=== PATIENT | male | born 1960 | race African-American/Black ===

== ENCOUNTER 2018-12-26 02:21 | Inpatient (IN) | payer MEDICAID ==
[~2018-12-26] VITALS: Ht 162.6 cm; Wt 71.8 kg
[2018-12-26] MEDS ORDERED: BLOOD SUGAR DIAGNOSTIC 1 EACH STRIP IN ONE (03:00)
[2018-12-26] MEDS ORDERED: ACETAMINOPHEN 325 MG TABLET PO PRN (03:00)
[2018-12-26] MEDS ORDERED: TEMAZEPAM 7.5 MG CAPSULE PO PRN (03:00)
[2018-12-26] MEDS ORDERED: MAGNESIUM HYDROXIDE 30 ML UDC PO PRN (03:00)
[2018-12-26] MEDS ORDERED: MAG HYDROX/AL HYDROX/SIMETH 30 ML UDC PO PRN (03:00)
[2018-12-26] MEDS ORDERED: LORAZEPAM 0.5 MG TABLET PO PRN (03:00)
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
--- NOTE | 2018-12-26 04:05 | NUR ---
MS/RN NOTES PATIENT AAOX3. PATIENT IS TAKING ONLY 2 MEDICATIONS AT HOME. FAMILY NEEDS TO BE NOTIFIED IN THE MORNING. ALL SAFETY MEASURES APPLIED. BED PUT ON LOWEST POSITION. BED ALARM ON SIDERAILS UPX2 ALL NEEDS ATTENDED.
[2018-12-26] MEDS ORDERED: ZIPR20CA2 PO (07:37)
[2018-12-26] MEDS ORDERED: SERT25TA5 PO (07:37)
[2018-12-26 08:00] VITALS: BP 109/63
--- NOTE | 2018-12-26 09:00 | NUR ---
received pt. non-intrusive.isolative.cooperative.no acute distress.
[2018-12-26 16:00] VITALS: BP 139/74
--- NOTE | 2018-12-26 18:25 | NUR ---
REFUSED MRSA SMEAR.
--- NOTE | 2018-12-26 20:00 | NUR ---
GPS RN NOTE RECEIVED PATIENT IN BED AWAKE. A/O X3. TOLERATING ROOM AIR. RESPIRATIONS ARE EVEN AND UNLABORED. NO S/S SOB. DENIES PAIN AT THIS TIME. NO APPARENT DISTRESS NOTED. PATIENT DENIES SI/HI AT THIS TIME. PATIENT HAS NO NEEDS AT THIS TIME PATIENT IS CALM, COOPERATIVE, MED COMPLAINT AND RESPONDS WHEN ENGAGED.. PATIENT IS EDUCATED ON THE USE OF THE CALL COLBY. BED IS LOW AND LOCKED, SIDE RIALS UP X2. ENVIRONMENTAL CHECKS COMPLETED, NO CONTRABAND FOUND. ID BAND ON. WILL CONTINUE TO MONITOR [id number] TO ASSESS FOR SAFETY AND BEHAVIOR
[2018-12-26 20:59] VITALS: BP 143/71
[2018-12-27 07:27] LABS: ALBUMIN 2.9 g/dL (3.4-5.0); BILIRUBIN,TOTAL 0.3 mg/dL (0.2-1.0); CALCIUM, SERUM 8.2 mg/dL (8.5-10.1); CHOLESTEROL 189 mg/dL (<200); CREATININE 0.8 mg/dL (0.6-1.3); HDL CHOLESTEROL 46 mg/dL (40-60); LDL 117 mg/dL (0-99); POTASSIUM 3.8 mmol/L (3.5-5.1); TOTAL PROTEIN, SERUM 6.8 g/dL (6.4-8.2); TRIGLYCERIDES 93 mg/dL (30-150)
[2018-12-27 08:00] VITALS: BP 146/83
[2018-12-27] MEDS: ZIPRASIDONE 20 MG CAPSULE PO SCH ×2 (08:17→17:08)
[2018-12-27] MEDS: SERTRALINE HCL 50 MG TABLET PO SCH (08:17)
[2018-12-27 16:02] VITALS: BP 127/79
[2018-12-27 19:52] VITALS: BP 127/68
[2018-12-28 08:00] VITALS: BP 139/80
[2018-12-28] MEDS: SERTRALINE HCL 50 MG TABLET PO SCH (08:29)
[2018-12-28] MEDS: ZIPRASIDONE 20 MG CAPSULE PO SCH ×2 (08:29→17:48)
--- NOTE | 2018-12-28 15:39 | NUR ---
GROUP NOTE: SW encouraged pt to participate in group on this present day discussing "discharge planning." Pt refused to attend and stated he wanted to stay in bed. Pt remains isolative and withdrawn with labile mood. Pt stated he was tired.
--- NOTE | 2018-12-28 15:47 | NUR ---
Substance Abuse Intervention: SW conducted a substance abuse intervention with the pt regarding his cannabis use.
[2018-12-28 16:00] VITALS: BP 132/67
--- NOTE | 2018-12-28 16:18 | NUR ---
Initial Discharge Plan: Pt currently resides at [address] [place] [address]; ([phone]). Per pt, he would like to return to his home. ARASH will work with the MD and the pt regarding appropriate discharge planning. SW will form a safe and proper discharge.
--- NOTE | 2018-12-28 16:18 | NUR ---
Family Contact: SW called the pts uncleMc ([phone]), but the number is not in use.
[2018-12-28 20:30] VITALS: BP 134/73
[2018-12-29 08:00] VITALS: BP 137/67
[2018-12-29] MEDS: SERTRALINE HCL 50 MG TABLET PO SCH (08:16)
[2018-12-29] MEDS: ZIPRASIDONE 20 MG CAPSULE PO SCH ×2 (08:16→16:11)
--- NOTE | 2018-12-29 15:16 | NUR ---
ARASH attempted to pull the pts safe bag with the help of a INFORMATION SYSTEMS SPECIALIST but the pt did not have a cell phone listed on his belongings sheet in his chart. Therefore, there is no way that the SW can get a working phone number for any family contact.
--- NOTE | 2018-12-29 15:40 | NUR ---
GROUP NOTE: SW encouraged pt to participate in group on this present day discussing "positive coping skills." Pt was asleep and not easily aroused.
[2018-12-29 16:00] VITALS: BP 137/78
[2018-12-29 20:26] VITALS: BP 134/69
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
[2018-12-30 08:00] VITALS: BP 142/74
[2018-12-30] MEDS: SERTRALINE HCL 50 MG TABLET PO SCH (08:55)
[2018-12-30] MEDS: ZIPRASIDONE 20 MG CAPSULE PO SCH ×2 (08:55→17:07)
--- NOTE | 2018-12-30 12:12 | NUR ---
Individual Intervention: SW spoke to the pt and informed him that he will be discharged on the following day. Pt stated that he does not have the ability to transport himself back to his home unless he receives a TAP card because then he will take the bus. SW stated that she will speak to her supervisor pumping station and see if a taxi can be authorized.
--- NOTE | 2018-12-30 15:56 | NUR ---
Group Note: SW encouraged pt to participate in group on 12/30/18 at 2pm discussing "discharge planning." Pt stated that he is aware that he is being discharged home tomorrow via taxi.
[2018-12-30 16:00] VITALS: BP 137/65
--- NOTE | 2018-12-30 19:08 | NUR ---
RN NOTE: PATIENT REFUSED MRSA SWAB SAMPLE OF THE NARES.M
[2018-12-30 20:26] VITALS: BP 145/76
--- NOTE | 2018-12-31 05:39 | NUR ---
GPS RN NOTE: PATIENT REFUSED MRSA SURVEILANCE, EXPLAINED THE RISK AND BENEFITS BUT PATIENT STILL REFUSED.
[2018-12-31 08:00] VITALS: BP 144/75
[2018-12-31] MEDS: SERTRALINE HCL 50 MG TABLET PO SCH (08:57)
[2018-12-31] MEDS: ZIPRASIDONE 20 MG CAPSULE PO SCH (08:57)
--- NOTE | 2018-12-31 09:24 | NUR ---
DR. GIBSON GAVE AN ORDER TO D/C HOLD AND D/C HOME AND TO FOLLOW UP WITH PSYCH AND MEDICAL DOCTORS.
--- NOTE | 2018-12-31 12:53 | NUR ---
RN NOTE: PATIENT IS A 58 Y/O MALE DISCHARGED TO HOME [address] [place] [address] [phone] . PATIENT IS IN STABLE CONDITION, AMBULATORY WITH STEADY GAIT. VSS. NO ACUTE DISTRESS NOTED. NO COMPLAINTS. COMPLIANT WITH MEDICATION MANAGEMENT. COOPERATIVE WITH PLAN OF CARE. PSYCHIATRIC TREATMENT PLANS MET. MEDICAL TREATMENT PLANS DEFERRED FOR CONTINUAL MONITORING. DENIES SI/HI VAH AT THE TIME OF DISCHARGE. SKIN CHECK DONE WITH WOUND PICTURES IN CHART. EDUCATED PATIENT ABOUT AFTERCARE WITH COPY PROVIDED. RETURNED PERSONAL BELONGINGS TO PATIENT. MEDICATIONS RECONCILED ALONG WITH PSYCHIATRIC DISCHARGE ORDERS. DISCHARGE PAPERWORK SIGNED. PATIENT TO FOLLOW UP WITH PSYCHIATRIST AND VETERINARY MEDICINE DOCTOR WITHIN 1 WEEK. PATIENT LEFT THE [facility] VIA TAXI AT 1245.
--- NOTE | 2018-12-31 15:25 | NUR ---
Discharge Note: Pt was discharged home to [address] [place] [address]; ([phone]). Pt was discharged via taxi at 1PM. Upon discharge, the pt appeared to be in a euthymic mood and presented with a distressed affect. Pt denied both suicidal and homicidal ideation as well as auditory and visual hallucinations. Pt was provided with smoking cessation referrals and was referred to a meeting that are listed below. Pt will be under the care of his psychiatrist, Dr. Shanelle Sheikh MD located at [address] [facility] [address] [address]; ; and a fax of records were sent to: [phone]. Pt has an appointment on 01/05/19 at 11AM. Pt will also be under the care of his web art director, Emmanuel Almodovar MD located at [address], [place] [address]; . Smoking Cessation Referrals: [employer] [place] [employer] 800-LUNGUSA [employer] [place] [employer] [phone] Nicotine Anonymous meeting on [address] [facility] [address] on Monday December 31, 2018 at 7:00 PM
== END 2018-12-31 12:45 | disposition home or self-care (01) | DRG 750 ==
LOC: GPS 02:21
PROVIDERS: ADMIT Psychiatry & Neurology Psychiatry; ATTEND Nurse Practitioner Acute Care
DX: F25.9 Schizoaffective disorder, unspecified (principal); E44.0 Moderate protein-calorie malnutrition; F29 Unspecified psychosis not due to a substance or known physiological condition; E88.09 Other disorders of plasma-protein metabolism, not elsewhere classified; F31.9 Bipolar disorder, unspecified
CPT/HCPCS: 36415; 80053-TC; 80061-TC

== ENCOUNTER 2019-08-08 05:53 | Emergency (ER) | payer MEDICAID, OTHER ==
[~2019-08-08] VITALS: Ht 167.6 cm; Wt 74.8 kg
[2019-08-08] MEDS ORDERED: BACLOFEN (10 MG) 10 MG TABLET ONE (06:43)
[2019-08-08] MEDS ORDERED: HYDROCODONE/APAP 5/325MG 1 EACH TABLET ONE (06:43)
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
[2019-08-08] MEDS ORDERED: BACLOFEN (10 MG) 10 MG TABLET PO ONE (07:00)
[2019-08-08] MEDS ORDERED: HYDROCODONE/APAP 5/325MG 1 EACH TABLET PO ONE (07:00)
--- NOTE | 2019-08-08 07:15 | NUR ---
Patient is resting comfortably in Bed. Easily aroused. VSS.
[2019-08-08 08:45] VITALS: BP 135/80
--- NOTE | 2019-08-08 08:45 | NUR ---
Patient discharged to home in stable condition. Written and verbal after care instructions given. Patient verbalizes understanding of instruction.
== END 2019-08-08 08:46 | disposition home or self-care (01) ==
LOC: ER 06:01
DX: M54.5 Low back pain (principal); G89.29 Other chronic pain; F31.9 Bipolar disorder, unspecified; Z98.890 Other specified postprocedural states; Z88.6 Allergy status to analgesic agent; Z88.8 Allergy status to other drugs, medicaments and biological substances; Z59.0 Homelessness
CPT/HCPCS: 72131-TC